=== PATIENT | male | born 1970 | race Caucasian/White ===

== ENCOUNTER 2016-10-30 09:07 | Emergency (ER) | payer MEDICARE, MEDICAID ==
[~2016-10-30] VITALS: Ht 162.6 cm; Wt 90.2 kg
[~2016-10-30 09:07] MED LIST: CETI10CA8; ENAL20TA; LAMO200T49; MONT10TA9; RISP1TAB48
[2016-10-30 09:14] VITALS: BP 142/89
== END 2016-10-30 10:22 | disposition home or self-care (01) ==
LOC: ED 10:19
DX: H66.92 Otitis media, unspecified, left ear (principal); H60.92 Unspecified otitis externa, left ear; I10 Essential (primary) hypertension; K21.9 Gastro-esophageal reflux disease without esophagitis
CPT/HCPCS: 99283

== ENCOUNTER 2018-07-08 18:00 | Emergency (ER) | payer MEDICARE, MEDICAID ==
[~2018-07-08] VITALS: Ht 170.2 cm; Wt 90.0 kg
--- NOTE | 2018-07-08 18:00 | NUR ---
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 +N/V/D. DENIES FEVER/PAINFUL URINATION/TRAUMA. RLQ/R FLANK TENDER TO PALPATION. SEEN AT PCP TODAY, SCHEDULED MRI FOR TOMORROW FOR EVAL, "I JUST COULDN'T WAIT THAT LONG" PT GIVEN TYLENOL AND MOTRIN [employer] BY DENISE W/ IMPROVEMENT IN PAIN. PT AMBULATORY TO SOPHY FROM DENISE BECKETT, GIFTY NOTED. BP/SPO2 MONITORING IN PLACE. AWAITING EVAL.
--- NOTE | 2018-07-08 18:34 | NUR ---
UA COLLECTED AND SENT TO LAB
[2018-07-08 18:45] LABS: MICROSCOPIC NOT IND
[2018-07-08 18:53] LABS: CULTURE INDICATED? NO
[2018-07-08 18:56] LABS: BASOPHILS # (AUTO) 0.02 x10^3/uL (0-0.1); BASOPHILS % (AUTO) 0 % (0-1); EOSINOPHILS # (AUTO) 0.03 x10^3/uL (0-0.4); EOSINOPHILS % (AUTO) 1 % (1-7); LYMPHOCYTES # (AUTO) 1.09 x10^3/uL (1-3.4); LYMPHOCYTES % (AUTO) 24 % (22-44); MD NO; MEAN CORPUSCULAR HEMOGLOBIN 30.4 pg (27.5-34.5); MEAN CORPUSCULAR HGB CONC 34.1 g/dL (33.2-36.2); MEAN CORPUSCULAR VOLUME 89.1 fL (81-97); MEAN PLATELET VOLUME 7.6 fL (7.4-10.4); MONOCYTES # (AUTO) 0.43 x10^3/uL (0.2-0.8); MONOCYTES % (AUTO) 10 % (2-9); NEUTROPHILS # (AUTO) 2.93 x10^3/uL (1.8-6.8); NEUTROPHILS % (AUTO) 65 % (42-75); PLATELET COUNT 251 x10^3/uL (130-400); RED CELL DISTRIBUTION WIDTH 14.3 % (9.4-14.8)
[2018-07-08 18:57] LABS: ALANINE AMINOTRANSFERASE 56 U/L (12-78); ALBUMIN 3.6 g/dL (3.4-5.0); ANION GAP 4 mmol/L (5-15); CALCIUM 8.7 mg/dL (8.5-10.1); CHLORIDE 108 mmol/L (98-107); CREATININE 0.73 mg/dL (0.7-1.3)
[2018-07-08 19:00] LABS: ALKALINE PHOSPHATASE 77 U/L (45-117); BILIRUBIN,TOTAL 0.4 mg/dL (0.2-1.0); TOTAL PROTEIN 7.6 g/dL (6.4-8.2)
[2018-07-08 19:30] VITALS: BP 125/77
--- NOTE | 2018-07-08 19:54 | NUR ---
PT REPORTS "THE PAIN HASN'T COME BACK". PT SITTING UP IN GIFTY BECKETT NOTED. NO N/V/D SINCE ARRIVAL TO ED. BP/SPO2 MONITORING IN PLACE. CHART UP FOR RECHECK
--- NOTE | 2018-07-08 20:01 | NUR ---
DC EDUCATION PROVIDED BY RODRIGUEZ KAUFMAN
== END 2018-07-08 20:11 | disposition home or self-care (01) ==
LOC: ED 20:05
DX: R10.31 Right lower quadrant pain (principal); R11.2 Nausea with vomiting, unspecified; K21.9 Gastro-esophageal reflux disease without esophagitis; I10 Essential (primary) hypertension; F31.9 Bipolar disorder, unspecified
CPT/HCPCS: 36415; 74176; 80053; 81003; 83690; 85025; 99284

== ENCOUNTER 2018-08-07 13:00 | Observation (INO) | payer MEDICARE, MEDICAID ==
[~2018-08-07] VITALS: Ht 177.8 cm; Wt 90.9 kg
[~2018-08-07 13:00] MED LIST changes: -ENAL20TA; +ENAL20TA PO; -LAMO200T49; +LAMO200T49 PO; -MONT10TA9; +MONT10TA9 PO; -RISP1TAB48; +RISP1TAB48 PO
--- NOTE | 2018-08-07 13:04 | NUR ---
BIB [facility] FOR C/O CP AND SOB STARTED 1 HR AGO. STRESSED RECENTLY. GIVEN 324 MG ASA AND STATES PAIN RELIEF. VS [address], 98% RA, BP 146/90. DENIES CARDIAC/PULM HX. MONITORS APPLIED. PT RESTING ON GURNEY. NADN. EKG CMP.
[2018-08-07] MEDS ORDERED: CETI10TA32 PO (13:15)
[2018-08-07] MEDS ORDERED: NITROGLYCERIN SINGLE TAB 0.4 MG SL ONE ×3 (13:21→14:50)
[2018-08-07] MEDS ORDERED: SODIUM CHLORIDE FLUSH 10ML SYR IVF ONE (13:30)
[2018-08-07] MEDS ORDERED: ASPIRIN 81 MG TABLET CHEW PO ONE (13:30)
[2018-08-07 13:37] LABS: BASOPHILS # (AUTO) 0.03 x10^3/uL (0-0.1); BASOPHILS % (AUTO) 1 % (0-1); EOSINOPHILS % (AUTO) 0 % (1-7); LYMPHOCYTES # (AUTO) 1.23 x10^3/uL (1-3.4); LYMPHOCYTES % (AUTO) 20 % (22-44); MD NO; MEAN CORPUSCULAR HGB CONC 33.4 g/dL (33.2-36.2); MEAN CORPUSCULAR VOLUME 89.7 fL (81-97); MEAN PLATELET VOLUME 7.5 fL (7.4-10.4); MONOCYTES # (AUTO) 0.58 x10^3/uL (0.2-0.8); MONOCYTES % (AUTO) 9 % (2-9); NEUTROPHILS # (AUTO) 4.47 x10^3/uL (1.8-6.8); NEUTROPHILS % (AUTO) 71 % (42-75); PLATELET COUNT 310 x10^3/uL (130-400); RED BLOOD COUNT 5.05 x10^6/uL (4.38-5.82); RED CELL DISTRIBUTION WIDTH 14.6 % (9.4-14.8)
[2018-08-07] MEDS: NITROGLYCERIN SINGLE TAB 0.4 MG SL PRN ×2 (13:37→14:51)
[2018-08-07 13:46] LABS: ALBUMIN 4.3 g/dL (3.4-5.0); ANION GAP 9 mmol/L (5-15); CALCIUM 9.1 mg/dL (8.5-10.1); CHLORIDE 107 mmol/L (98-107)
[2018-08-07 13:53] LABS: CREATININE 0.84 mg/dL (0.7-1.3); TROPONIN I < 0.015 ng/mL (0.000-0.045)
--- NOTE | 2018-08-07 13:56 | NUR ---
PT STATES IMPROVEMENT AFTER NITRO ADMIN. PAIN FROM 5/10 TO 3/10.
--- NOTE | 2018-08-07 14:33 | NUR ---
PT RESTING ON GURNEY. NADN. SOLOMON.
--- NOTE | 2018-08-07 14:58 | NUR ---
REPORT GIVEN TO MIRANDA, RECEIVING RN. ALL QUESTIONS ANSWERED. AWAITING PT TRANSPORT.
[2018-08-07] MEDS ORDERED: NITROGLYCERIN 0.4 MG/SPRAY SL PRN (16:30)
[2018-08-07] MEDS ORDERED: ONDANSETRON 2MG/ML, 2ML IVP PRN (16:30)
[2018-08-07] MEDS ORDERED: NITROGLYCERIN SINGLE TAB 0.4 MG SL PRN (16:30)
[2018-08-07] MEDS ORDERED: NITROGLYCERIN 0.4 MG BOTTLE (25 TABS) SL PRN (16:30)
[2018-08-07] MEDS ORDERED: ACETAMINOPHEN 650 MG/20.3 ML UDC PO PRN (16:30)
[2018-08-07] MEDS ORDERED: CALCIUM CARBONATE 500 MG TAB.CHEW PO PRN (16:30)
[2018-08-07] MEDS ORDERED: ENOXAPARIN 40 MG/0.4 ML SQ SCH (16:30)
[2018-08-07] MEDS ORDERED: morphine SULFATE 10 MG/ML, 1ML IV PRN (16:30)
[2018-08-07] MEDS: KETOROLAC 30 MG/1 ML IVPush PRN (16:56)
[2018-08-07 17:35] LABS: HEMOGLOBIN A1C 5.1 % (4.2-6.3)
[2018-08-07] MEDS: METHOCARBAMOL 500 MG TABLET PO PRN (18:26)
[2018-08-07 19:03] LABS: TROPONIN I < 0.015 ng/mL (0.000-0.045)
[2018-08-07 19:30] VITALS: BP 103/67
[2018-08-07] MEDS: SODIUM CHLORIDE FLUSH 10ML SYR IVF SCH (20:27)
[2018-08-07] MEDS: LAMOTRIGINE 200 MG TABLET PO SCH (20:28)
[2018-08-07] MEDS ORDERED: FAMOTIDINE 20 MG TABLET PO SCH (21:00)
[2018-08-07] MEDS ORDERED: RISPERIDONE 1 MG TAB.RAPDIS PO SCH (21:00)
[2018-08-08] MEDS: KETOROLAC 30 MG/1 ML IVPush PRN (01:08)
[2018-08-08] MEDS: METHOCARBAMOL 500 MG TABLET PO PRN ×2 (01:08→10:34)
[2018-08-08 01:19] LABS: CHOL/HDL RATIO 5.8; LDL/HDL RATIO 3.6 (0.5-3.0)
[2018-08-08 01:26] VITALS: BP 99/69
[2018-08-08 01:45] LABS: TROPONIN I < 0.015 ng/mL (0.000-0.045)
[2018-08-08] MEDS ORDERED: ASPIRIN 325 MG TABLET EC PO SCH (06:00)
[2018-08-08 07:50] VITALS: BP 108/71
[2018-08-08] MEDS ORDERED: SODIUM CHLORIDE 0.9% 1,000ML IVBOLUS ONE (08:00)
[2018-08-08] MEDS ORDERED: REGADENOSON 0.4 MG/5 ML SYRINGE ONE (08:53)
[2018-08-08] MEDS ORDERED: CETIRIZINE 10 MG TABLET PO SCH (09:00)
[2018-08-08] MEDS ORDERED: MONTELUKAST 10 MG TABLET PO SCH (09:00)
[2018-08-08] MEDS ORDERED: ENALAPRIL 20MG TABLET PO SCH (09:00)
[2018-08-08] MEDS: LAMOTRIGINE 200 MG TABLET PO SCH (10:29)
[2018-08-08] MEDS: SODIUM CHLORIDE FLUSH 10ML SYR IVF SCH (10:31)
[2018-08-08] MEDS ORDERED: CALC200T24 PO (14:00)
[2018-08-08] MEDS ORDERED: ACET650S21 PO (14:00)
[2018-08-08] MEDS ORDERED: IBUP-1484 PO (14:00)
[2018-08-08 14:35] VITALS: BP 109/77
== END 2018-08-08 16:25 | disposition home or self-care (01) ==
LOC: ED 14:29 → 5SO 14:30 → INTOOBSV 14:30 → ED 14:37 → DCLOUNGE 08-08 16:17
PROVIDERS: ADMIT Internal Medicine; ATTEND Internal Medicine
DX: R07.89 Other chest pain (principal); I10 Essential (primary) hypertension; F31.9 Bipolar disorder, unspecified; K21.9 Gastro-esophageal reflux disease without esophagitis; E78.1 Pure hyperglyceridemia; F41.9 Anxiety disorder, unspecified; G40.909 Epilepsy, unspecified, not intractable, without status epilepticus; J30.9 Allergic rhinitis, unspecified; Z80.41 Family history of malignant neoplasm of ovary; Z83.3 Family history of diabetes mellitus
CPT/HCPCS: 36415; 71045; 78452; 80048; 80061; 82040; 83036; 84484; 85025; 85379; 93005; 93017; 93306; 96372; 96374; 96375; 96376; 99284; A9502; C9898; G0378; J1650; J1885; J2270; J2785